=== PATIENT | male | born 1985 ===

== ENCOUNTER 2022-01-03 18:05 | Outpatient (CLI) | payer SELFPAY | END 2022-01-03 18:06 | disposition home or self-care (01) | PROVIDERS: Visit Provider Family Medicine | DX: R41.82 Altered mental status, unspecified (principal) | CPT/HCPCS: A0425; A0429 ==

== ENCOUNTER 2022-01-03 19:05 | Emergency (ER) | payer SELFPAY ==
[2022-01-03 19:07] VITALS: BP 141/111; PULSE 102; RESP 18; TEMP 36.4; O2SAT 98
--- NOTE | 2022-01-03 20:27 | ED.GENADULT ---
HPI - General Adult General Time Seen by Provider: 20:28 <Emanuel Machado MD - Last Filed: 01/09/22 08:07> Date Seen: 01/03/22 <Emanuel Machado MD - Last Filed: 01/09/22 08:07> Chief complaint: Altered Mental Status <Emanuel Machado MD - Last Filed: 01/09/22 08:07> Stated complaint: Altered <Emanuel Machado MD - Last Filed: 01/09/22 08:07> Time Seen by Provider: 01/03/22 20:10 <Emanuel Machado MD - Last Filed: 01/09/22 08:07> Source: patient, RN notes reviewed and old records reviewed <Emanuel Machado MD - Last Filed: 01/09/22 08:07> Mode of arrival: ambulatory <Emanuel Machado MD - Last Filed: 01/09/22 08:07> Limitations: no limitations <Emanuel Machado MD - Last Filed: 01/09/22 08:07> History of Present Illness HPI narrative: 36-year-old male brought patient. Apparently, EMS called by roommate as they did not want him in the house anymore. Difficult to assess due to slow response to questions. He tells me that his friend called EMS today but is not able to tell me why. He reports that sometimes he will get short of breath and when this happens he will call a friend and they are able to ?talk him down. He denies drug use although prior drug screens have been positive for methamphetamine. He denies suicide ideation or ideas of self-harm. He has no other complaints today. Review of outside records shows that patient has many visits for psychosis and altered mentation, plan for mental health admission, however cleared after several days in the ED and was discharged. Did receive Zyprexa for sedation at that time. <Emanuel Machado MD - Last Filed: 01/09/22 08:07> Related Data Allergies/adverse reactions: Allergies Allergy/AdvReac Type Severity Reaction Status Date / Time No Known Drug Allergies Allergy Verified 01/03/22 19:14 <Emanuel Machado MD - Last Filed: 01/09/22 08:07> Review of Systems Status of ROS: Reports: 10 or more systems reviewed and unremarkable except as noted in History and below <Emanuel Machado MD - Last Filed: 01/09/22 08:07> [facility] Social History: Social History Smoking Status: Unknown if ever smoked Non-prescribed substance use: declined to answer service: No <Emanuel Machado MD - Last Filed: 01/09/22 08:07> Exam Narrative: Exam Narrative: General: Well-developed and well-nourished, no acute distress Head: Atraumatic and normocephalic Eyes: Pupils are equal reactive, extraocular motions intact, conjunctiva clear ENT: External nose and ears are normal, posterior pharynx without erythema or exudate Neck: No midline cervical tenderness, full spontaneous range of motion the neck, trachea midline, no adenopathy Heart: Regular rate and rhythm no murmurs or thrills Lungs: Clear to auscultation bilaterally without wheezes or crackles Abdomen: Soft, nontender, nondistended with active bowel sounds Musculoskeletal: No tenderness, deformity, or edema Neurologic: Awake, alert, and oriented x3, no gross focal neurologic deficits, cranial nerves intact as tested Psych: Up pacing in room, slow to answer questions. Initially is asking me about ?large events in the cities? and relates that ?I used to have friends. Does not appear to be reacting to internal stimuli. Occasional change in chill but able to be redirected. Skin: No rashes <Emanuel Machado MD - Last Filed: 01/09/22 08:07> Const: Vital Signs, click to edit/add: Vital Signs - 24 hr 01/04/22 04:05 01/04/22 10:55 Temperature 97.8 F 97.6 F Pulse Rate [Right Pulse Oximeter] 100 83 Respiratory Rate 18 18 Blood Pressure [Ri ght Upper Arm] 130/88 115/82 Pulse Oximetry 98 99 Oxygen Delivery Me thod Room Air <Emanuel Machado MD - Last Filed: 01/09/22 08:07> Vital Signs, click to edit/add: Vital Signs - 24 hr 01/04/22 04:05 01/04/22 10:55 Temperature 97.8 F 97.6 F Pulse Rate [Right Pulse Oximeter] 100 83 Respiratory Rate 18 18 Blood Pressure [Ri ght Upper Arm] 130/88 115/82 Pulse Oximetry 98 99 Oxygen Delivery Me thod Room Air <Aneesh Franklin MD - Last Filed: 01/04/22 19:33> Course Course Hospital Course: Patient presents to after EMS was called by friend. Review of records shows history of psychosis and polysubstance abuse. Patient is not suicidal or homicidal, admits to anxiety. Denies hallucinations. UDS and labs ordered along with Zyprexa PO. Not holdable at this time. <Emanuel Machado MD - Last Filed: 01/09/22 08:07> Reevaluation(s) Reevaluation #1: Patient has been continuing pacing the halls, unable to redirect back to the room. Not aggressive but also still disorganized. Patient is unable to make a plan for discharge and is also unable to be redirected department as his. Zyprexa IM is ordered. <Emanuel Machado MD - Last Filed: 01/09/22 08:07> Time: 21:30 <Emanuel Machado MD - Last Filed: 01/09/22 08:07> Reevaluation #2: Patient behavior is escalating, getting more agitated, yelling and not redirectable. B52 is ordered. <Emanuel Machado MD - Last Filed: 01/09/22 08:07> Time: 21:56 <Emanuel Machado MD - Last Filed: 01/09/22 08:07> Reevaluation #3: Patient resting, remains vitally stable. <Emanuel Machado MD - Last Filed: 01/09/22 08:07> Time: 04:05 <Emanuel Machado MD - Last Filed: 01/09/22 08:07> Vital Signs Vital signs: Initial Vital Signs Temperature 97.6 F 01/03/22 19:07 Temperature Source Temporal Artery Scan 01/03/22 19:07 Pulse Rate 102 H 01/03/22 19:07 Pulse Rhythm 01/03/22 19:07 Respiratory Rate 18 01/03/22 19:07 Blood Pressure 141/111 H 01/03/22 19:07 Blood Pressure Mean 121 01/03/22 19:07 Blood Pressure Position Semi-Fowlers 01/03/22 19:07 Pulse Oximetry 98 01/03/22 19:07 Oxygen Delivery Method 01/03/22 19:07 Vital Signs Temperature 97.6 F 01/03/22 19:07 Pulse Rate 102 H 01/03/22 19:07 Respiratory Rate 18 01/03/22 19:07 Blood Pressure 141/111 H 01/03/22 19:07 Pulse Oximetry 98 01/03/22 19:07 Oxygen Delivery Method 01/03/22 19:07 Temperature 97.6 F 01/04/22 10:55 Pulse Rate 80 01/04/22 19:49 Respiratory Rate 18 01/04/22 10:55 Blood Pressure 108/80 01/04/22 20:10 Pulse Oximetry 99 01/04/22 19:49 Oxygen Delivery Method 01/04/22 19:49 <Emanuel Machado MD - Last Filed: 01/09/22 08:07> Initial Vital Signs Temperature 97.6 F 01/03/22 19:07 Temperature Source Temporal Artery Scan 01/03/22 19:07 Pulse Rate 102 H 01/03/22 19:07 Pulse Rhythm 01/03/22 19:07 Respiratory Rate 18 01/03/22 19:07 Blood Pressure 141/111 H 01/03/22 19:07 Blood Pressure Mean 121 01/03/22 19:07 Blood Pressure Position Semi-Fowlers 01/03/22 19:07 Pulse Oximetry 98 01/03/22 19:07 Oxygen Delivery Method 01/03/22 19:07 Vital Signs Temperature 97.6 F 01/03/22 19:07 Pulse Rate 102 H 01/03/22 19:07 Respiratory Rate 18 01/03/22 19:07 Blood Pressure 141/111 H 01/03/22 19:07 Pulse Oximetry 98 01/03/22 19:07 Oxygen Delivery Method 01/03/22 19:07 Temperature 97.6 F 01/04/22 10:55 Pulse Rate 80 01/04/22 19:49 Respiratory Rate 18 01/04/22 10:55 Blood Pressure 108/80 01/04/22 20:10 Pulse Oximetry 99 01/04/22 19:49 Oxygen Delivery Method 01/04/22 19:49 <Aneesh Franklin MD - Last Filed: 01/04/22 19:33> Medical Decision Making MDM Narrative Medical decision making narrative: The patient is arousable now he is awake alert, moving about, does not seem agitated. All have deck Telehealth Assessment see him. He has had positive drug screen for methamphetamine. Peers to be cleared clinically at this point. The patient has been very agitated now at about 940 a.m.. She is talking to deck Telehealth sports statistician, he is yelling. A Dr. Romero was called the patient did seem to calm somewhat he was starting to talk to the deck sports statistician, but ill intermittently yell. He also tried to have some thought powder in a plastic bag that he tried to keep an was taken by security. Patient this point is cooperating with deck. I anticipate given his level of agitation that he will being stream the difficult to place anywhere in a mental health facility. It sounds like he was having some mental health issues before he came in, as well as methamphetamine and amphetamine use. Will attempt to get an assessment with deck, and sedate as needed, the police are here as well as Dr. Romero was called. Addendum: 10:17 a.m., the patient is now sleeping again, deck was unable to get a appropriate assessment due to his agitation. Will long to sleep, get him some food, consider repeat deck assessment when he is more alert and stable. At this time he did seem alert and ready for a deck assessment, but it is it was unsuccessful. Patient will be a difficult placement hopefully he will improve in be allowed to discharge if his sensorium clears and he is less agitated and we can have a reasonable discussion with him. Addendum: 6:45 p.m. the patient has slept most of the day, he has been very cooperative at this point, hemodynamics are better, he has been awake and alert talking normally. He has been asking for water and food, and he has gone back to sleep. I think we can observe him as long as he would feel comfortable, at this point he does not appear to need another deck Telehealth assessment, but we can assess this as he has more ready for discharge. Likely a social disposition problem is he does not have a destination to be discharged to, but apparently he will check with friends. It appears he was suffering from drug intoxication earlier, and seems more mentally stable now was still think progress over the evening. Addendum: 7:30 p.m. the patient has talked to staff and interacted, he has not been psychotic, has had no hallucinatory activity at this point, he has been cooperative. He still been sleeping quite a bit but totally responsive. At this point I think if he is up and about and feels that he is ready to go home I think that would be reasonable, I would recommend he follow up with his regular doctor within the next couple of days, clearly drug use for him needs to stop. And he could consider treatment for this at some point as well. He is not interested in talking about this at this point however. <Aneesh Franklin MD - Last Filed: 01/04/22 19:33> Medical Records Medical records reviewed: Yes I reviewed the patient's medical records <Emanuel Machado MD - Last Filed: 01/09/22 08:07> Lab Data Lab results reviewed: Yes I reviewed the patient's lab results <Emanuel Machado MD - Last Filed: 01/09/22 08:07> Labs: Lab Results 01/03/22 01/04/22 Range/Units 20:56 08:50 Sodium 136 (135-149) mmol/L Potassium 4.3 (3.6-5.1) mmol/L Chloride 102 (96-114) mmol/L Carbon Dioxide 28 (20-32) mmol/L BUN 17 (5-24) mg/dL Creatinine 1.0 (0.5-1.5) mg/dL Estimated GFR 99 ml/min Glucose 93 (60-115) mg/dL Calcium 9.4 (8.4-10.6) mg/dL Urine Opiates Screen Negative (Negative) Ur Oxycodone Screen Negative (Negative) Urine Methadone Screen Negative (Negative) Ur Propoxyphene Screen Negative (Negative) Ur Barbiturates Screen Negative (Negative) U Tricyclic Antidepress Negative (Negative) Ur Phencyclidine Scrn Negative (Negative) Ur Amphetamines Screen POSITIVE A* (Negative) U Methamphetamines Scrn POSITIVE A* (Negative) U Benzodiazepines Scrn Negative (Negative) Urine Cocaine Screen Negative (Negative) U Marijuana (THC) Screen POSITIVE A* (Negative) Ur Drug Screen Comment See Note Ethyl Alcohol < 0.01 L (0.01-0.03) % <Emanuel Machado MD - Last Filed: 01/09/22 08:07> Lab Results 01/03/22 01/04/22 Range/Units 20:56 08:50 Sodium 136 (135-149) mmol/L Potassium 4.3 (3.6-5.1) mmol/L Chloride 102 (96-114) mmol/L Carbon Dioxide 28 (20-32) mmol/L BUN 17 (5-24) mg/dL Creatinine 1.0 (0.5-1.5) mg/dL Estimated GFR 99 ml/min Glucose 93 (60-115) mg/dL Calcium 9.4 (8.4-10.6) mg/dL Urine Opiates Screen Negative (Negative) Ur Oxycodone Screen Negative (Negative) Urine Methadone Screen Negative (Negative) Ur Propoxyphene Screen Negative (Negative) Ur Barbiturates Screen Negative (Negative) U Tricyclic Antidepress Negative (Negative) Ur Phencyclidine Scrn Negative (Negative) Ur Amphetamines Screen POSITIVE A* (Negative) U Methamphetamines Scrn POSITIVE A* (Negative) U Benzodiazepines Scrn Negative (Negative) Urine Cocaine Screen Negative (Negative) U Marijuana (THC) Screen POSITIVE A* (Negative) Ur Drug Screen Comment See Note Ethyl Alcohol < 0.01 L (0.01-0.03) % <Aneesh Franklin MD - Last Filed: 01/04/22 19:33> Critical Care Time Critical Care Time Critical Care Time: Yes (Acute psychosis requiring sedation in the department) Attestation: The patient required my highest level preparedness to intervene emergently and I personally spent this critical care time directly and personally managing the patient. This critical care time included: Obtaining a history; Examining the patient; Pulse oximetry; Ordering and reviewing of studies; Arranging urgent treatment with development of a management plan; Evaluation of patients response to treatment; Frequent reassessment discussions with other providers. This critical care time was performed to assess and manage the high probability of imminent life-threatening deterioration that could result in multiorgan failure. It was exclusive of separate billable procedures and treating other patients and teaching time. <Emanuel Machado MD - Last Filed: 01/09/22 08:07> Total Critical Care Time in Minutes: 40 <Emanuel Machado MD - Last Filed: 01/09/22 08:07> Discharge Plan Discharge Clinical Impression: Bipolar disorder, Polysubstance abuse <Emanuel Machado MD - Last Filed: 01/09/22 08:07> Patient Disposition: Home w/ Parent or Adult <Emanuel Machado MD - Last Filed: 01/09/22 08:07> Condition: Improved <Emanuel Machado MD - Last Filed: 01/09/22 08:07> Additional Instructions: Rest, fluids, follow up with regular doctor within the next couple of days, with stop any street drug use such as methamphetamine or amphetamine. Return if any problems or concerns, mental health issues, or other problems. <Emanuel Machado MD - Last Filed: 01/09/22 08:07> Activity Level: Light activity <Emanuel Machado MD - Last Filed: 01/09/22 08:07> Light activity <Aneesh Franklin MD - Last Filed: 01/04/22 19:33> Discharge Diet: Regular <Emanuel Machado MD - Last Filed: 01/09/22 08:07> Regular <Aneesh Franklin MD - Last Filed: 01/04/22 19:33> Stand Alone Forms: [facility] Info Instructions <Emanuel Machado MD - Last Filed: 01/09/22 08:07>
[2022-01-03 21:17] LABS: Barbiturate Screen Urine Negative (Negative); Benzodiazepines Screen Urine Negative (Negative); Cocaine Screen Urine Negative (Negative); Methadone Screen Urine Negative (Negative); Opiate Screen Urine Negative (Negative); Oxycodone Screen Urine Negative (Negative); Phencyclidine Screen Urine Negative (Negative); Tricyclic Antidepressant Urine Negative (Negative)
[2022-01-03 21:25] LABS: Amphetamine Screen Urine POSITIVE (Negative); Cannabinoid Screen Urine POSITIVE (Negative); Methamphetamines Screen Urine POSITIVE (Negative)
[2022-01-03] MEDS: OLANZapine 5 MG/ML inj 10 MG IM (21:30)
--- NOTE | 2022-01-03 21:44 | ED.NURSE ---
spent one hour speaking to pt and attempting to have pt return to his room. pt not willing to go back to room 6. Pt is nursing work area while patient information is being discussed. Pt is escorted to room with with several RNs and security. Pt walked to entry of room 6. MD arrived to attempt to speak to pt. Pt not willing to enter room. MD verbalized importance of being in room. IM zyprexa was ordered prior to pt entering room. Pt with left leg on bed, right leg off. House sup is also present, pt is placed supine on bed and given IM injection to pt. pt released and security is present watching pt.
[2022-01-03] MEDS: diphenhydrAMINE 50 MG/ML inj IM (22:05)
[2022-01-03] MEDS: HALOPERIDOL 5 MG/ML INJ IM (22:06)
[2022-01-03] MEDS: LORazepam 2 MG/ML inj IM (22:06)
--- NOTE | 2022-01-03 22:06 | ED.NURSE ---
Pt not cooperating, [employer] called to help with pt. ordered B52. [employer] assisted pt to bed, staff gave IM injection to pt. Rails on bed raised, pt in bed with [place] security watching pt.
--- NOTE | 2022-01-04 | ED.NURSE ---
lab not drawn, stated could wait until pt was awake.
--- NOTE | 2022-01-04 01:57 | ED.NURSE ---
pt sleeping in bed
[2022-01-04 04:05] VITALS: BP 130/88; PULSE 100; RESP 18; TEMP 36.6; O2SAT 98
--- NOTE | 2022-01-04 09:15 | ED.NURSE ---
pt awaken to engage in DEC assessment and eat breakfast. up to bathroom. during DEC assessment, was not cooperative. lying down on bed, not making eye contact, yelling out at times I just want to go home.
[2022-01-04 09:23] LABS: Chloride* 102 mmol/L (96-114); Potassium* 4.3 mmol/L (3.6-5.1); Sodium* 136 mmol/L (135-149)
[2022-01-04 09:25] LABS: Estimated Glomerular Filt Rate 99 ml/min
[2022-01-04 09:26] LABS: Blood Urea Nitrogen* 17 mg/dL (5-24); Calcium* 9.4 mg/dL (8.4-10.6); Carbon Dioxide* 28 mmol/L (20-32); Glucose* 93 mg/dL (60-115)
[2022-01-04 09:37] LABS: Ethanol* < 0.01 % (0.01-0.03)
[2022-01-04 10:55] VITALS: BP 115/82; PULSE 83; RESP 18; TEMP 36.4; O2SAT 99
--- NOTE | 2022-01-04 14:01 | ED.NURSE ---
pt has been sleeping since care taken over at noon. pt woke up to ask for lunch, lunch ordered. pt soundly sleeping when lunch arrived.
--- NOTE | 2022-01-04 14:25 | ED.NURSE ---
pt woke up, at lunch and went back to sleep
--- NOTE | 2022-01-04 17:14 | ED.NURSE ---
Pt appears resting comfortably. Spoke with pt about discharging. Pt alert and able to respond coherently, answered questions appropriately. Pt states at this time he did not feel like he would have somewhere to go to. notified.
[2022-01-04 19:49] VITALS: BP 90/65; PULSE 80; O2SAT 99
--- NOTE | 2022-01-04 19:50 | ED.NURSE ---
Pt resting. Checked pt vitals, pt cooperative with vitals.
[2022-01-04 20:10] VITALS: BP 108/80
--- NOTE | 2022-01-04 20:11 | ED.NURSE ---
Pt ambulatory to the restroom. Upon return from the restroom, pt requesting the return of drugs that were confiscated from him earlier today. Pt states, Where's my speed? I need my speed!. Pt redirectable back to his bed, cooperative with BP recheck. Vitally stable. Immigration Case Worker asked pt if he was ready to DC and head out. Pt states he is not ready for DC. Pt states, I'm chillin. Pt provided with warm blanket.
--- NOTE | 2022-01-05 | ED.NURSE ---
Pt stating desire to leave, asking for staff to call a cab for him. Registration attempted to contact taxi, no taxis running. At approx 0007 hours, pt pacing in the ER hallways and repeating desire to leave. International Travel Consultant provided pt with all his belongings that were in the med room. International Travel Consultant informed pt that no local taxis were running, machine sign writer asked pt if he could call for a ride or knew anyone who could pick him up. Pt unable to name anyone who could pick him up. Pt using his phone, but not making calls. International Travel Consultant informed pt he could have someone come pick him up, or pt could physically walk out of the building to depart if he wanted to leave. Pt walking in the halls, attempting to enter other rooms and MD office. Pt redirected back away from other pt rooms. Pt became agitated when asked to remain in his room. International Travel Consultant explained to pt that there were other patients here and he could not be wandering in pt care areas. International Travel Consultant stated to pt that he needed to remain in his room or he could walk around out in the lobby. Pt became more agitated, yelling at machine sign writer, then entering ER bathroom and slamming the door loudly. After exiting the bathroom, pt continued pacing in the hallway. Pt attempting to enter another pt's room again. International Travel Consultant redirected pt away from that room and again informed pt that he could not be wandering into other pt care areas. Pt became more agitated and yelled loudly at machine sign writer again. International Travel Consultant directed other ER staff to contact police at this point for assistance due to pt's agitation and disruptive behavior. Security present on the unit and assisted in redirecting pt to his room. Pt continued pacing in RM 6 and in the hallway by RM 6. International Travel Consultant provided pt with DC instructions at this point (approx 0020 hours). Pt declined to look at DC instructions and threw instructions on the ground. Pt continued to pace. [place] [employer] arrived at approx 0021 hours. Updated PD on situation, informed PD that pt was discharged and needed to leave the building at this time due to his disruptive and aggressive behavior. PD spoke with pt for several minutes. Plan established by PD to provide pt with a ride from the hospital to another location. Pt walked out of ER escorted by PD at approx 0038 hours.
== END 2022-01-05 00:40 | disposition home or self-care (01) ==
PROVIDERS: Family Medicine; Emergency Provider Family Medicine
DX: F31.89 Other bipolar disorder (principal); F15.121 Other stimulant abuse with intoxication delirium
CPT/HCPCS: 36415; 80048; 80306; 82077; 96372; 99284; 99291; J1200; J1630; J2060; S0166